=== PATIENT | male | born 1945 | race Caucasian/White ===

== ENCOUNTER 2020-02-22 08:28 | Outpatient (CLI) | payer MEDICARE ==
[~2020-02-22 08:28] MED LIST: LANS30CA37 PO; LISI-222 PO; PRAV10TA38 PO
[2020-02-22 10:09] LABS: BASOPHILS # (AUTO) 0.1 X10'3 (0-0.2); BASOPHILS % (AUTO) 1.3 % (0-1); EOSINOPHILS # (AUTO) 0.5 X10'3 (0-0.9); EOSINOPHILS % (AUTO) 5.9 % (0-6); HEMATOCRIT 42.7 % (42.0-52.0); HEMOGLOBIN 14.2 g/dl (14.0-17.9); LYMPHOCYTES # (AUTO) 1.8 X10'3 (1.1-4.8); LYMPHOCYTES % (AUTO) 22.2 % (21-51); MEAN CORPUSCULAR HEMOGLOBIN 32.2 PG (27.0-31.0); MEAN CORPUSCULAR HGB CONC 33.3 g/dL (33.0-36.5); MEAN CORPUSCULAR VOLUME 96.7 FL (78-98); MEAN PLATELET VOLUME 10.9 FL (7.4-10.4); MONOCYTES % (AUTO) 12.8 % (2-12); NEUTROPHILS # (AUTO) 4.6 X10'3 (1.8-7.7); NEUTROPHILS % (AUTO) 57.8 % (42-75); PLATELET COUNT 170 X10'3 (140-440); RED BLOOD COUNT 4.41 X10'6 (4.70-6.10); RED CELL DISTRIBUTION WIDTH 13.1 % (11.5-14.5); WHITE BLOOD COUNT 7.9 X10'3 (4.5-11.0)
[2020-02-22 10:41] LABS: ALANINE AMINOTRANSFERASE 221 U/L (12-78); ALBUMIN 3.8 G/DL (3.4-5.0); ALKALINE PHOSPHATASE 167 IU/L (46-116); ANION GAP 8 (8-16); ASPARTATE AMINO TRANSFERASE 66 U/L (10-37); BILIRUBIN,TOTAL 0.6 MG/DL (0.1-1.0); BLOOD UREA NITROGEN 26 MG/DL (7-18); BUN/CREATININE RATIO 27.4 (5.4-32.0); CALCIUM 9.2 MG/DL (8.5-10.1); CHLORIDE 105 MMOL/L (99-107); CREATININE 0.95 MG/DL (0.60-1.10); GLUCOSE 100 MG/DL (70-104); POTASSIUM 4.3 MMOL/L (3.5-5.1); SODIUM 142 MMOL/L (135-145); TOTAL CARBON DIOXIDE 28.6 MMOL/L (24-32); TOTAL PROTEIN 7.8 G/DL (6.4-8.2); eGFR 77 ML/MIN
[2020-02-23] MEDS ORDERED: MULT-1141 PO (12:39)
[2020-02-23] MEDS ORDERED: LISI1TAB51 PO (12:39)
[2020-02-23] MEDS ORDERED: ATOR-2 PO (12:39)
[2020-02-23] MEDS ORDERED: ASCO500C17 PO (12:39)
[2020-02-23] MEDS ORDERED: CHOL500050 PO (12:39)
[2020-02-23] MEDS ORDERED: ESOM20CA2 (12:39)
[2020-02-23] MEDS ORDERED: FLO0.4C PO (12:39)
[2020-02-23] MEDS ORDERED: CYAN250010 PO (12:39)
== END 2020-02-22 23:59 | disposition home or self-care (01) ==
LOC: RT 08:28
PROVIDERS: ATTEND Internal Medicine Cardiovascular Disease
DX: M85.88 Other specified disorders of bone density and structure, other site (principal); I35.0 Nonrheumatic aortic (valve) stenosis; R06.02 Shortness of breath; I65.29 Occlusion and stenosis of unspecified carotid artery
CPT/HCPCS: 36415; 71046; 80053; 85025; 93880; 94010; 94727; 94729

== ENCOUNTER 2020-02-23 11:58 | Day surgery (SDC) | payer MEDICARE ==
[2020-02-19 12:45] LABS: BASOPHILS # (AUTO) 0.1 X10'3 (0-0.2); BASOPHILS % (AUTO) 1.5 % (0-1); EOSINOPHILS # (AUTO) 0.4 X10'3 (0-0.9); HEMATOCRIT 41.2 % (42.0-52.0); HEMOGLOBIN 13.7 g/dl (14.0-17.9); LYMPHOCYTES % (AUTO) 29.6 % (21-51); MEAN CORPUSCULAR HEMOGLOBIN 32.1 PG (27.0-31.0); MEAN CORPUSCULAR HGB CONC 33.3 g/dL (33.0-36.5); MEAN CORPUSCULAR VOLUME 96.2 FL (78-98); MEAN PLATELET VOLUME 10.8 FL (7.4-10.4); MONOCYTES # (AUTO) 0.8 X10'3 (0-0.9); MONOCYTES % (AUTO) 12.1 % (2-12); NEUTROPHILS # (AUTO) 3.5 X10'3 (1.8-7.7); NEUTROPHILS % (AUTO) 50.8 % (42-75); PLATELET COUNT 161 X10'3 (140-440); RED BLOOD COUNT 4.28 X10'6 (4.70-6.10); WHITE BLOOD COUNT 6.9 X10'3 (4.5-11.0)
[2020-02-19 13:04] LABS: PARTIAL THROMBOPLASTIN TIME 24 SECONDS (22-32)
[2020-02-19 13:08] LABS: ALBUMIN 3.7 G/DL (3.4-5.0); ANION GAP 8 (8-16); BLOOD UREA NITROGEN 19 MG/DL (7-18); BUN/CREATININE RATIO 21.6 (5.4-32.0); CALCIUM 9.4 MG/DL (8.5-10.1); CHLORIDE 104 MMOL/L (99-107); CREATININE 0.88 MG/DL (0.60-1.10); GLUCOSE 103 MG/DL (70-104); POTASSIUM 4.1 MMOL/L (3.5-5.1); SODIUM 142 MMOL/L (135-145); TOTAL CARBON DIOXIDE 29.6 MMOL/L (24-32); eGFR 84 ML/MIN
[2020-02-19 13:28] LABS: LARGE PLATELETS FEW; PLATELET ESTIMATE NORMAL
[2020-02-23] VITALS (9 sets, daily range): BP systolic 89–133; BP diastolic 47–95
[~2020-02-23] VITALS: Ht 175.3 cm; Wt 106.0 kg
[2020-02-23] MEDS ORDERED: diphenhydrAMINE 25mg capsule PO PRN (12:15)
[2020-02-23] MEDS ORDERED: LORazepam 0.5 MG tablet PO PRN (12:15)
[2020-02-23] MEDS ORDERED: LIDOcaine/PRILOcaine 5gm cream TP ONE (12:15)
[2020-02-23] MEDS ORDERED: normal saline 1,000 ML IV SCH (12:15)
[2020-02-23] MEDS ORDERED: LISI1TAB51 PO (12:39)
[2020-02-23] MEDS ORDERED: ESOM20CA2 (12:39)
[2020-02-23] MEDS ORDERED: CHOL500050 PO (12:39)
[2020-02-23] MEDS ORDERED: MULT-1141 PO (12:39)
[2020-02-23] MEDS ORDERED: ATOR-2 PO (12:39)
[2020-02-23] MEDS ORDERED: CYAN250010 PO (12:39)
[2020-02-23] MEDS ORDERED: FLO0.4C PO (12:39)
[2020-02-23] MEDS ORDERED: ASCO500C17 PO (12:39)
[2020-02-23] MEDS ORDERED: verapamil 2.5 mg/ml inj IV ONE (12:59)
[2020-02-23] MEDS ORDERED: midazolam 2 mg/2 ml injection ONE (12:59)
[2020-02-23] MEDS ORDERED: fentaNYL/PF 50MCG/1 ML 2ML syringe ONE (12:59)
[2020-02-23] MEDS ORDERED: LIDOcaine 1% (10mg/ml)w/preservative injection 20ml MDV ONE (13:00)
[2020-02-23] MEDS ORDERED: heparin 1,000unit/ml 10ml vial 10 ML ONE (13:00)
[2020-02-23] MEDS ORDERED: nitroGLYCERIN-Tridil 50MG/D5W 250 ML IV ONE (13:00)
[2020-02-23] MEDS ORDERED: heparin 1,000 UNITS/NS 500ml 500 ML ONE (13:00)
[2020-02-23] MEDS ORDERED: iohexol 350MG/ML 100ml bottle IV ONE (13:00)
[2020-02-23] MEDS ORDERED: ondansetron/PF 4mg/2ml inj IV PRN (14:15)
[2020-02-23] MEDS ORDERED: HYDROcodone/acetaminophen 10/325mg tab PO PRN (14:15)
[2020-02-23] MEDS ORDERED: proCHLORperazine 10 MG/2 ml inj IV PRN (14:15)
[2020-02-23] MEDS ORDERED: HYDROcodone/acetaminophen 5mg/325mg tablet PO PRN (14:15)
[2020-02-23] MEDS ORDERED: OXAZEpam 15mg capsule PO PRN (14:15)
== END 2020-02-23 16:30 | disposition home or self-care (01) ==
LOC: SSTAY O 11:58
PROVIDERS: ATTEND Internal Medicine Interventional Cardiology
DX: I35.0 Nonrheumatic aortic (valve) stenosis (principal); I25.10 Atherosclerotic heart disease of native coronary artery without angina pectoris; E78.49 Other hyperlipidemia; I10 Essential (primary) hypertension; Z79.899 Other long term (current) drug therapy; Z79.01 Long term (current) use of anticoagulants; Z87.891 Personal history of nicotine dependence; Z88.8 Allergy status to other drugs, medicaments and biological substances
CPT/HCPCS: 36415; 80048; 85025; 85610; 85730; 93005; 93454; 99152; C1769; C1894; J1644; J2001; J2250; J3010; J7030; Q0163; Q9967; 85008; A4620; J3490

== ENCOUNTER 2020-02-26 10:45 | Outpatient (CLI) | payer MEDICARE ==
[~2020-02-26 10:45] MED LIST changes: +ASCO500C17 PO; +ATOR-2 PO; +CHOL500050 PO; +CYAN250010 PO; +ESOM20CA2; +FLO0.4C PO; -LANS30CA37 PO; -LISI-222 PO; +LISI1TAB51 PO; +MULT-1141 PO; -PRAV10TA38 PO
[2020-02-26] MEDS ORDERED: iohexol 350MG/ML 100ml bottle IV ONE ×2 (10:49→10:55)
[2020-02-26] MEDS ORDERED: iohexol 350 MG/ML 50ML vial IV ONE (10:49)
== END 2020-02-26 23:59 | disposition home or self-care (01) ==
LOC: 64 CT 10:45
PROVIDERS: ATTEND Internal Medicine Cardiovascular Disease
DX: K76.0 Fatty (change of) liver, not elsewhere classified (principal); R91.1 Solitary pulmonary nodule; N40.0 Benign prostatic hyperplasia without lower urinary tract symptoms; N32.3 Diverticulum of bladder; I70.0 Atherosclerosis of aorta; I51.7 Cardiomegaly; I35.8 Other nonrheumatic aortic valve disorders; E04.1 Nontoxic single thyroid nodule
CPT/HCPCS: 71275; 74174; Q9967

== ENCOUNTER 2020-03-30 12:46 | Emergency (ER) | payer MEDICARE ==
[~2020-03-30] VITALS: Ht 175.3 cm; Wt 103.0 kg
[~2020-03-30 12:46] MED LIST changes: +ASPI-1265 PO; -ESOM20CA2; +ESOM20CA2 PO; +GLUC100017 PEG; +LISI1TAB29 PO; -LISI1TAB51 PO; +MAGN500C16 PO; +TRIA15OI9 TOP; +VITA1CAP19 PO; +[UNRECOGNIZED DRUG - OTHER] PO
[2020-03-30 12:48] VITALS: BP 143/55
[2020-03-30 13:21] LABS: BASOPHILS # (AUTO) 0.1 X10'3 (0-0.2); EOSINOPHILS # (AUTO) 0.3 X10'3 (0-0.9); EOSINOPHILS % (AUTO) 3.7 % (0-6); HEMATOCRIT 36.4 % (42.0-52.0); HEMOGLOBIN 12.2 g/dl (14.0-17.9); LYMPHOCYTES # (AUTO) 2.2 X10'3 (1.1-4.8); LYMPHOCYTES % (AUTO) 23.4 % (21-51); MEAN CORPUSCULAR HEMOGLOBIN 32.2 PG (27.0-31.0); MEAN CORPUSCULAR HGB CONC 33.6 g/dL (33.0-36.5); MEAN PLATELET VOLUME 11.2 FL (7.4-10.4); MONOCYTES # (AUTO) 1.2 X10'3 (0-0.9); MONOCYTES % (AUTO) 12.5 % (2-12); NEUTROPHILS # (AUTO) 5.6 X10'3 (1.8-7.7); NEUTROPHILS % (AUTO) 59.4 % (42-75); PLATELET COUNT 128 X10'3 (140-440); RED CELL DISTRIBUTION WIDTH 12.9 % (11.5-14.5); WHITE BLOOD COUNT 9.4 X10'3 (4.5-11.0)
[2020-03-30 13:31] LABS: ALANINE AMINOTRANSFERASE 141 U/L (12-78); ALBUMIN 3.3 G/DL (3.4-5.0); ALBUMIN/GLOBULIN RATIO 0.8 (1.1-1.5); ALKALINE PHOSPHATASE 139 IU/L (46-116); ANION GAP 11 (8-16); ASPARTATE AMINO TRANSFERASE 55 U/L (10-37); BILIRUBIN,TOTAL 0.6 MG/DL (0.1-1.0); BLOOD UREA NITROGEN 34 MG/DL (7-18); BUN/CREATININE RATIO 30.1 (5.4-32.0); CALCIUM 9.2 MG/DL (8.5-10.1); CHLORIDE 104 MMOL/L (99-107); CREATININE 1.13 MG/DL (0.60-1.10); GLUCOSE 106 MG/DL (70-104); POTASSIUM 4.1 MMOL/L (3.5-5.1); SODIUM 141 MMOL/L (135-145); TOTAL CARBON DIOXIDE 25.9 MMOL/L (24-32); TOTAL PROTEIN 7.2 G/DL (6.4-8.2); eGFR 63 ML/MIN
[2020-03-30 14:11] LABS: LARGE PLATELETS FEW
[2020-03-30 14:13] LABS: PLATELET ESTIMATE DECREASED
[2020-03-30 15:49] LABS: CLARITY,URINE CLEAR (Clear); COLOR,URINE YELLOW (Yellow); GLUCOSE, URINE NEGATIVE (Neg); KETONES,URINE NEGATIVE (Neg); LEUKOCYTE ESTERASE ,URINE NEGATIVE (Neg); NITRITES, URINE NEGATIVE (Neg); OCCULT BLOOD,URINE MODERATE (Neg); PH,URINE 5.5 (4.8-8.0); PROTEIN,URINE NEGATIVE (Neg); UROBILINOGEN,URINE 0.2 E.U/dL (0.2-1.0)
[2020-03-30 16:00] LABS: UA COLLECTION TYPE FOLEY CATH
[2020-03-30 16:01] LABS: BACTERIA,URINE NONE SEEN /HPF (Neg); SQUAMOUS EPITHELIAL CELL,UR NONE SEEN /LPF (FEW); WBC,URINE NONE SEEN /HPF (0-4)
== END 2020-03-30 17:06 | disposition home or self-care (01) ==
LOC: ER 12:47
DX: R33.9 Retention of urine, unspecified (principal); N13.9 Obstructive and reflux uropathy, unspecified; E78.00 Pure hypercholesterolemia, unspecified; I10 Essential (primary) hypertension; Z95.2 Presence of prosthetic heart valve; Z98.890 Other specified postprocedural states; Z88.8 Allergy status to other drugs, medicaments and biological substances; Z79.82 Long term (current) use of aspirin; Z79.899 Other long term (current) drug therapy
CPT/HCPCS: 36415; 51702; 71045; 80053; 81001; 85008; 85025; 99284

== ENCOUNTER 2020-04-28 14:53 | Outpatient (CLI) | payer MEDICARE ==
[~2020-04-28] VITALS: Ht 175.3 cm; Wt 100.7 kg
--- NOTE | 2020-04-28 17:18 | NUR ---
Patient was seen today for TAVR follow-up with Dr. Gerber and Dr. Charles. [id number] completed. Vital signs measured. Echo and EKG reviewed with patient along with current condition of patients symptoms.
[2020-04-28 17:50] VITALS: BP 136/66
[2020-04-28 17:53] VITALS: BP 107/59
== END 2020-04-28 23:59 | disposition home or self-care (01) ==
LOC: TAVR 14:53
PROVIDERS: ATTEND Internal Medicine Cardiovascular Disease
DX: Z48.812 Encounter for surgical aftercare following surgery on the circulatory system (principal); Z95.5 Presence of coronary angioplasty implant and graft

== ENCOUNTER 2023-12-10 05:44 | Inpatient (IN) | payer MEDICARE ==
[2023-12-03 11:16] LABS: PRE OP PROTIME 10.9 SECONDS (9.0-12.0)
[2023-12-03 11:17] LABS: ALBUMIN 3.6 G/DL (3.4-5.0); ALBUMIN/GLOBULIN RATIO 0.9 (1.1-1.5); ALKALINE PHOSPHATASE 108 IU/L (46-116); BLOOD UREA NITROGEN 19 MG/DL (7-18); BUN/CREATININE RATIO 21.6 (10.0-20.0); CALCIUM 9.4 MG/DL (8.5-10.1); CHLORIDE 103 MMOL/L (99-107); CREATININE 0.88 MG/DL (0.60-1.10); PRE OP ALT 45 U/L (30-65); PRE OP ANION GAP 5 (8-16); PRE OP AST 25 U/L (10-37); PRE OP BILIRUB, TOTAL 0.7 MG/DL (0.0-1.0); PRE OP GLUCOSE 98 MG/DL (70-104); PRE OP POTASSIUM 4.2 MMOL/L (3.4-5.1); PRE OP SODIUM 138 MMOL/L (135-145); TOTAL CARBON DIOXIDE 30.1 MMOL/L (24-32); TOTAL PROTEIN 7.6 G/DL (6.4-8.2); eGFR 84 ML/MIN
[2023-12-03 11:25] LABS: BILIRUBIN,URINE NEGATIVE (Neg); CLARITY,URINE CLEAR (Clear); COLOR,URINE YELLOW (Yellow); GLUCOSE, URINE NEGATIVE (Neg); KETONES,URINE NEGATIVE (Neg); LEUKOCYTE ESTERASE ,URINE NEGATIVE (Neg); NITRITES, URINE NEGATIVE (Neg); OCCULT BLOOD,URINE NEGATIVE (Neg); PH,URINE 5.5 (4.8-8.0); PROTEIN,URINE NEGATIVE (Neg); UROBILINOGEN,URINE 0.2 E.U/dL (0.2-1.0)
[2023-12-03 11:30] LABS: UA COLLECTION TYPE CLN CATCH MIDSTREAM
[2023-12-03 12:00] LABS: BASOPHILS # (AUTO) 0.1 X10'3 (0-0.2); BASOPHILS % (AUTO) 1.3 % (0-1); EOSINOPHILS # (AUTO) 0.4 X10'3 (0-0.9); EOSINOPHILS % (AUTO) 5.7 % (0-6); LYMPHOCYTES # (AUTO) 1.7 X10'3 (1.1-4.8); LYMPHOCYTES % (AUTO) 25.9 % (21-51); MEAN CORPUSCULAR HEMOGLOBIN 32.5 PG (27.0-31.0); MEAN CORPUSCULAR HGB CONC 33.7 g/dL (33.0-36.5); MEAN CORPUSCULAR VOLUME 96.3 FL (78-98); MEAN PLATELET VOLUME 10.1 FL (7.4-10.4); MONOCYTES # (AUTO) 0.8 X10'3 (0-0.9); MONOCYTES % (AUTO) 12.4 % (2-12); NEUTROPHILS # (AUTO) 3.5 X10'3 (1.8-7.7); NEUTROPHILS % (AUTO) 54.7 % (42-75); PRE OP HEMATOCRIT 40.2 % (42.0-52.0); PRE OP HEMOGLOBIN 13.6 g/dL (14.0-17.9); PRE OP PLATELET COUNT 129 X10'3 (140-440); PRE OP WHITE BLOOD COUNT 6.4 10'3 (4.8-10.8); RED BLOOD COUNT 4.18 X10'6 (4.70-6.10); RED CELL DISTRIBUTION WIDTH 13.2 % (11.5-14.5)
[2023-12-10] VITALS (31 sets, daily range): BP systolic 112–178; BP diastolic 64–96; PULSE 55–70; RESP 14–26; TEMP 97.5–98.1; O2SAT 94–98
[~2023-12-10] VITALS: Ht 170.2 cm; Wt 98.8 kg
[2023-12-10] MEDS: DOCUMENT DATE & TIME OF BETA-BLOCKER PO ONE (05:30)
[2023-12-10] MEDS: ringers solution, lacted 1,000 ML IV SCH ×2 (05:30→06:45)
[2023-12-10] MEDS: ceFAZolin 2gm in dextrose, iso 50 ML IV ONE (05:30)
[~2023-12-10 05:44] MED LIST changes: +APIX5TAB3 PO; +ASCO100T10 PO; -ASCO500C17 PO; -ASPI-1265 PO; -ESOM20CA2 PO; +EZET10TA6 PO; -GLUC100017 PEG; +GLUC500T12 PO; -LISI1TAB29 PO; +LISI1TAB51 PO; -MAGN500C16 PO; +MULT-1085 PO; -MULT-1141 PO; +OMEP20CA16 PO; +SOTA80TA PO; -TRIA15OI9 TOP; +TUMERIC PO; +UBID100C16 PO; +VITA-288 PO; -VITA1CAP19 PO; -[UNRECOGNIZED DRUG - OTHER] PO; +ondansetron/PF 4mg/2ml inj IV PRN
[2023-12-10] MEDS ORDERED: iohexol 350MG/ML 100ml bottle IV ONE (06:22)
[2023-12-10] MEDS ORDERED: midazolam 1 mg/ML 2ml injection ONE (06:41)
[2023-12-10] MEDS ORDERED: fentaNYL/PF 50MCG/1 ML 2ML syringe ONE (06:41)
[2023-12-10] MEDS ORDERED: labetalol 20mg/4ml (5mg/ml) syringe IV PRN ×2 (06:45→07:55)
[2023-12-10] MEDS ORDERED: morphine 2 MG/ML inj. syringe IV PRN (06:45)
[2023-12-10] MEDS ORDERED: hydrALAZINE 20mg/ml inj. IV PRN ×2 (06:45→07:55)
[2023-12-10] MEDS ORDERED: meperidine/PF 25mg/ml syringe IV PRN ×3 (06:45)
[2023-12-10] MEDS ORDERED: ondansetron/PF 4mg/2ml inj IV PRN ×2 (06:45→07:55)
[2023-12-10] MEDS ORDERED: morphine 4 MG/ML inj SYRINge IV PRN (06:45)
[2023-12-10] MEDS ORDERED: proCHLORperazine 10 MG/2 ml inj IV PRN ×2 (06:45→07:55)
[2023-12-10] MEDS: acetaminophen 1,000mg/100ml IV 100 ML IV ONE (06:45)
[2023-12-10] MEDS ORDERED: LIDOcaine 1% (10mg/ml) 2ml vial ONE ×2 (06:48→07:06)
[2023-12-10] MEDS: famotidine 20mg tablet PO ONE (06:51)
[2023-12-10] MEDS ORDERED: protamine sulfate 10mg/ml inj. ONE (06:52)
[2023-12-10] MEDS: vancomycin 1,500 MG in NS 300ml IV soln IV ONE (06:53)
[2023-12-10] MEDS ORDERED: sevoflurane 250ml liquid IH ONE (07:05)
[2023-12-10] MEDS ORDERED: LIDOcaine 2% (20mg/ml) 5ml vial ONE (07:06)
[2023-12-10] MEDS ORDERED: propofol inj 20 ML IV ONE (07:06)
[2023-12-10] MEDS ORDERED: heparin 1,000unit/ml 10ml vial 10 ML ONE ×2 (07:19→07:40)
[2023-12-10] MEDS ORDERED: dexamethasone sod phosphate 4mg/ml inj. ONE (07:19)
[2023-12-10] MEDS ORDERED: ondansetron/PF 4mg/2ml inj ONE (07:19)
[2023-12-10] MEDS ORDERED: ePHEDrine 50MG/ML INJ. ONE (07:22)
[2023-12-10] MEDS ORDERED: 0.9 % SODIUM CHLORIDE 10 ML VIAL ONE (07:22)
[2023-12-10] MEDS ORDERED: potassium CL 10mEq/100ml bag 100 ML IV PRN (07:55)
[2023-12-10] MEDS ORDERED: magnesium sulf-water 4G/100mL 100 ML IV PRN (07:55)
[2023-12-10] MEDS ORDERED: magnesium sulf-water 2g/50mL 50 ML IV PRN (07:55)
[2023-12-10] MEDS ORDERED: diphenhydrAMINE 25mg capsule PO PRN (07:55)
[2023-12-10] MEDS: normal saline 1000ml 1,000 ML IV SCH (07:55)
[2023-12-10] MEDS ORDERED: potassium Cl 40MEQ/270ML bag 250 ML IV PRN (07:55)
[2023-12-10] MEDS ORDERED: ALPRAZolam 0.25mg tablet PO PRN (07:55)
[2023-12-10] MEDS ORDERED: HYDROcodone/acetaminophen 5mg/325mg tablet PO PRN (07:55)
[2023-12-10] MEDS ORDERED: pantoprazole 40mg Tablet.DR PO PRN (07:55)
[2023-12-10] MEDS ORDERED: potassium Cl 20 mEq SR tablet PO PRN (07:55)
[2023-12-10] MEDS ORDERED: acetaminophen 325mg tablet PO PRN (07:55)
[2023-12-10] MEDS ORDERED: potassium Cl 40MEQ/1/2NS 520ml 520 ML IV PRN (07:55)
[2023-12-10] MEDS ORDERED: potassium Cl 20mEq/100mL bag 100 ML IV PRN (07:55)
[2023-12-10] MEDS ORDERED: docusate sod 100mg capsule PO PRN (07:55)
[2023-12-10] MEDS: ceFAZolin 1GM/D5W- ADD-VANTAGE 50 ML IV SCH (08:00)
[2023-12-10] MEDS ORDERED: vancomycin/NS 1 GM ADD-VANTAGE 250 ML IV SCH (08:00)
[2023-12-10] MEDS ORDERED: sod chloride 0.9% 10ml flush syringe IV SCH (08:00)
[2023-12-10] MEDS: sotalol HCl 40mg (1/2 tablet) PO SCH (20:25)
[2023-12-10] MEDS: VANCOMYCIN 1GM 200ML H20 (PEG) 200 ML IV SCH (20:26)
[2023-12-10] MEDS: apixaban 5mg tablet PO SCH (20:26)
[2023-12-11 02:00] VITALS: BP 108/67; PULSE 60; RESP 19; TEMP 98.8; O2SAT 93
[2023-12-11 06:00] VITALS: BP 144/81; PULSE 61; RESP 17; TEMP 98; O2SAT 95
[2023-12-11 07:32] LABS: INR 1.1 INR; PROTHROMBIN TIME 11.1 SECONDS (9.0-12.0)
[2023-12-11 08:00] VITALS: RESP 17; O2SAT 95
[2023-12-11] MEDS ORDERED: VITAMIN E MIXED 400 UNIT PO SCH (08:00)
[2023-12-11] MEDS: multivitamins, therapeutics tablet PO SCH (08:00)
[2023-12-11] MEDS: cholecalciferol (vitamin D3) 1,000 unit (25mcg) tablet PO SCH (08:00)
[2023-12-11] MEDS: cyanocobalamin 500mcg tablet PO SCH (08:00)
[2023-12-11] MEDS ORDERED: GLUCOSAMINE HCL 1000 MG PO SCH (08:00)
[2023-12-11] MEDS: ezetimibe 10mg tablet PO SCH (08:00)
[2023-12-11] MEDS ORDERED: non-formulary drug (Ubidecarenone (Coq-10) 100 MG) PO SCH (08:00)
[2023-12-11 08:18] LABS: ALANINE AMINOTRANSFERASE 25 U/L (12-78); ALBUMIN 3.1 G/DL (3.4-5.0); ALBUMIN/GLOBULIN RATIO 0.9 (1.1-1.5); ALKALINE PHOSPHATASE 87 IU/L (46-116); ANION GAP 8 (8-16); ASPARTATE AMINO TRANSFERASE 23 U/L (10-37); BILIRUBIN,TOTAL 0.7 MG/DL (0.1-1.0); BLOOD UREA NITROGEN 16 MG/DL (7-18); BUN/CREATININE RATIO 20.3 (10.0-20.0); CHLORIDE 104 MMOL/L (99-107); CREATININE 0.79 MG/DL (0.60-1.10); GLUCOSE 98 MG/DL (70-104); MAGNESIUM 1.6 MG/DL (1.5-2.4); POTASSIUM 3.5 MMOL/L (3.5-5.1); PRO BRAIN NATRIURETIC PEPTIDE 1079 PG/ML (0-450); SODIUM 138 MMOL/L (135-145); TOTAL CARBON DIOXIDE 25.7 MMOL/L (24-32); TOTAL PROTEIN 6.6 G/DL (6.4-8.2); eCRCL 71 ML/MIN; eGFR > 90 ML/MIN
[2023-12-11 08:34] LABS: BASOPHILS % (AUTO) 0.2 % (0-1); EOSINOPHILS % (AUTO) 0.2 % (0-6); HEMATOCRIT 36.8 % (42.0-52.0); HEMOGLOBIN 12.4 g/dl (14.0-17.9); LYMPHOCYTES # (AUTO) 1.7 X10'3 (1.1-4.8); LYMPHOCYTES % (AUTO) 14.9 % (21-51); MEAN CORPUSCULAR HEMOGLOBIN 32.7 PG (27.0-31.0); MEAN CORPUSCULAR HGB CONC 33.8 g/dL (33.0-36.5); MEAN CORPUSCULAR VOLUME 96.6 FL (78-98); MEAN PLATELET VOLUME 10.3 FL (7.4-10.4); MONOCYTES # (AUTO) 1.5 X10'3 (0-0.9); MONOCYTES % (AUTO) 12.8 % (2-12); NEUTROPHILS # (AUTO) 8.4 X10'3 (1.8-7.7); NEUTROPHILS % (AUTO) 71.9 % (42-75); PLATELET COUNT 121 X10'3 (140-440); RED BLOOD COUNT 3.81 X10'6 (4.70-6.10); RED CELL DISTRIBUTION WIDTH 13.3 % (11.5-14.5); WHITE BLOOD COUNT 11.7 X10'3 (4.5-11.0)
[2023-12-11] MEDS: HYDROchlorothiazide 12.5mg capsule PO SCH (09:16)
[2023-12-11 09:17] VITALS: BP_SYST 144; PULSE 61
[2023-12-11] MEDS: pantoprazole 40mg Tablet.DR PO SCH (09:17)
[2023-12-11] MEDS: lisinopril 20mg tablet PO SCH (09:17)
[2023-12-11] MEDS: tamsulosin 0.4mg capsule PO SCH (09:19)
[2023-12-11] MEDS: atorvastatin 20mg tablet PO SCH (09:20)
== END 2023-12-11 13:12 | disposition home or self-care (01) | DRG 274 ==
LOC: PAS IN 05:44 → EDSTATUS 07:00 → PCU 3S 13:00
PROVIDERS: ADMIT Student in an Organized Health Care Education/Training Program; ATTEND Student in an Organized Health Care Education/Training Program
PROC: 03HY32Z Insertion of Monitoring Device into Upper Artery, Percutaneous Approach (ICD-10-PCS; 2023-12-10)
PROC: B24BZZ4 Ultrasonography of Heart with Aorta, Transesophageal (ICD-10-PCS; 2023-12-10)
PROC: 02L73DK Occlusion of Left Atrial Appendage with Intraluminal Device, Percutaneous Approach (ICD-10-PCS; principal; 2023-12-10 07:05)
DX: I48.91 Unspecified atrial fibrillation (principal); Z00.6 Encounter for examination for normal comparison and control in clinical research program; I10 Essential (primary) hypertension; E78.5 Hyperlipidemia, unspecified; Z95.2 Presence of prosthetic heart valve; Z88.8 Allergy status to other drugs, medicaments and biological substances
CPT/HCPCS: 33340; 36415; 71045; 71046; 76937; 80053; 81003; 82948; 83735; 83880; 85025; 85347; 85610; 85730; 86885; 86900; 86901; 86920; 87081; 93005; 93308; 93312; 93325; A4615; A4618; A6258; A6449; C1760; C1889; C1893; C1894; G0378; J0690; J1100; J1644; J2003; J2250; J2405; J2704; J2720; J3010; J3370; J3490; J7030; J7040; J7120; Q9967

== ENCOUNTER 2024-01-21 10:44 | Day surgery (SDC) | payer MEDICARE ==
[~2024-01-21] VITALS: Ht 170.2 cm; Wt 99.9 kg
[2024-01-21] VITALS (11 sets, daily range): BP systolic 108–173; BP diastolic 64–98; PULSE 57–75; RESP 10–24; TEMP 97.7; O2SAT 94–99
[~2024-01-21 10:44] MED LIST changes: -ondansetron/PF 4mg/2ml inj IV PRN
[2024-01-21 11:49] LABS: BASOPHILS # (AUTO) 0.1 X10'3 (0-0.2); BASOPHILS % (AUTO) 1.1 % (0-1); EOSINOPHILS # (AUTO) 0.3 X10'3 (0-0.9); EOSINOPHILS % (AUTO) 3.7 % (0-6); HEMATOCRIT 40.1 % (42.0-52.0); HEMOGLOBIN 13.5 g/dl (14.0-17.9); LYMPHOCYTES # (AUTO) 1.9 X10'3 (1.1-4.8); LYMPHOCYTES % (AUTO) 25.2 % (21-51); MEAN CORPUSCULAR HEMOGLOBIN 32.8 PG (27.0-31.0); MEAN CORPUSCULAR HGB CONC 33.7 g/dL (33.0-36.5); MEAN CORPUSCULAR VOLUME 97.3 FL (78-98); MEAN PLATELET VOLUME 9.3 FL (7.4-10.4); MONOCYTES # (AUTO) 0.9 X10'3 (0-0.9); MONOCYTES % (AUTO) 12.2 % (2-12); NEUTROPHILS # (AUTO) 4.3 X10'3 (1.8-7.7); NEUTROPHILS % (AUTO) 57.8 % (42-75); PLATELET COUNT 140 X10'3 (140-440); RED BLOOD COUNT 4.12 X10'6 (4.70-6.10); RED CELL DISTRIBUTION WIDTH 13.5 % (11.5-14.5); WHITE BLOOD COUNT 7.4 X10'3 (4.5-11.0)
[2024-01-21 11:56] LABS: ALBUMIN 3.7 G/DL (3.4-5.0); ANION GAP 9 (8-16); BLOOD UREA NITROGEN 27 MG/DL (7-18); BUN/CREATININE RATIO 34.2 (10.0-20.0); CALCIUM 9.3 MG/DL (8.5-10.1); CHLORIDE 106 MMOL/L (99-107); CREATININE 0.79 MG/DL (0.60-1.10); GLUCOSE 104 MG/DL (70-104); POTASSIUM 4.2 MMOL/L (3.5-5.1); SODIUM 140 MMOL/L (135-145); TOTAL CARBON DIOXIDE 24.9 MMOL/L (24-32); eCRCL 71 ML/MIN; eGFR > 90 ML/MIN
[2024-01-21] MEDS: fentaNYL/PF 50MCG/1 ML 2ML syringe IV ONE (13:18)
[2024-01-21] MEDS: MIDAZolam 1mg/ml 10ml vial IV ONE (13:19)
[2024-01-21 13:31] LABS: APTT 28 SECONDS (22-32); INR 1.1 INR; PROTHROMBIN TIME 11.4 SECONDS (9.0-12.0)
[2024-01-21] MEDS ORDERED: CLOP-32 PO (13:38)
[2024-01-21] MEDS ORDERED: ASPI-1397 PO (13:38)
== END 2024-01-21 14:15 | disposition home or self-care (01) ==
LOC: SSTAY O 10:44
PROVIDERS: ATTEND Student in an Organized Health Care Education/Training Program
DX: I48.91 Unspecified atrial fibrillation (principal); I25.10 Atherosclerotic heart disease of native coronary artery without angina pectoris; Z98.890 Other specified postprocedural states
CPT/HCPCS: 36415; 80048; 85025; 85610; 85730; 93312; 93325; 94760; J2250; J3010; J7030

== ENCOUNTER 2024-09-06 16:44 | Emergency (ER) | payer MEDICARE ==
[~2024-09-06] VITALS: Ht 175.3 cm; Wt 100.8 kg
[~2024-09-06 16:44] MED LIST changes: +ASPI-1397 PO; +CLOP-32 PO; -FLO0.4C PO; +TAMS-55 PO
--- NOTE | 2024-09-06 17:21 | Physician Documentation ---
History of Present Illness ~ Chief Complaint: Urinary Retention Stated Complaint: "I THINK I HAVE A PROSTATE PROBLEMS" Time Seen by MD: 17:12 HPI This 78-year-old male presents to the emergency department reporting that he is having difficulty fully emptying his bladder. He reports that he was able to urinate 2 hours ago, but that it was only a very small amount. He denies chills or fever, nausea or vomiting, constipation, shortness of breath or chest pain. Medication Reconciliation Allergies: Coded Allergies: cortisone (Unverified Allergy, Unknown, 09/06/24) Scheduled Apixaban (Eliquis), 5 MG PO BID, (Reported) Ascorbic Acid (Vitamin C), 100 MG PO DAILY, (Reported) Aspirin (Aspirin EC), 1 TAB PO DAILY Atorvastatin Calcium (Atorvastatin Calcium), 80 MG PO DAILY, (Reported) Cholecalciferol (Vitamin D3) (Vitamin D3), 125 MCG PO DAILY, (Reported) Clopidogrel Bisulfate (Plavix), 1 TAB PO DAILY Cyanocobalamin (Vitamin B-12) (Vitamin B12), 5,000 MCG PO DAILY, (Reported) Ezetimibe (Zetia), 10 MG PO DAILY, (Reported) Glucosamine HCl (Glucosamine HCl), 1,000 MG PO DAILY, (Reported) Lisinopril/Hydrochlorothiazide (Lisinopril-Hctz 20-12.5 mg Tab), 1 TAB PO DAILY, (Reported) Multivitamin (Multi Vitamin Daily), 1 TAB PO DAILY, (Reported) Omeprazole (Omeprazole), 20 MG PO DAILY, (Reported) Sotalol Hcl (Sotalol), 40 MG PO BID, (Reported) Tamsulosin Hcl* (Flomax*), 0.4 MG PO DAILY, (Reported) Ubidecarenone (Coq-10), 100 MG PO DAILY, (Reported) Vitamin E Mixed (Vitamin E), 400 UNITS PO DAILY, (Reported) [Tumeric], 1,000 MG PO DAILY, (Reported) Past Medical History Past Medical History: High Cholesterol, Hypertension, Valve Insuffciency Past Surgical History: heart valve surgery Lives In: Home Occupation: retired Review of Systems ROS As stated above in the HPI, otherwise all systems are reviewed and negative. Physical Exam Vital Signs: Temperature: 98.8, Source: Temporal, Heart Rate: 84, Respiratory Rate: 18, BP: 164/90, Pulse Oximetry: 95, Weight: 100.750 Oxygen Flow Rate: 0 Physical Exam General: Alert, no apparent distress. Neck: Full range of motion. Respiratory: Lungs clear, no respiratory distress. Chest: No accessory muscle use. Cardiovascular: Regular rate and rhythm, no murmurs. TTP over bladder. Extremities: Normal range of motion, no deformity. Neurologic: Oriented x4. Psychiatric: Normal mood and affect. Skin: Normal color, warm and dry. 2+ edema BLE. Progress Progress Note 1745: RN reports bladder scan showed just over 600 ml. Clements catheter was placed at that time. Results/Orders Results/Orders Orders - TERRENCE DRUMMOND [employer] Bladder Scan (09/06/24 ) * Miscellaneous Nursing Orders (09/06/24 17:15) * (A) Clements- Protocol * Q12H@07,19 (09/06/24 17:30) Vital Signs 09/06/24 09/06/24 09/06/24 16:47 17:17 17:48 Temp 98.8 98.8 Pulse 84 78 Resp 18 16 14 B/P (MAP) 164/90 148/80 (102) Pulse Ox 95 94 O2 Flow Rate 0 0 Laboratory Tests Test 09/06/24 17:14 09/06/24 17:39 White Blood Count 12.2 H Red Blood Count 4.24 L Hemoglobin 13.4 L Hematocrit 39.8 L Mean Corpuscular Volume 93.9 Mean Corpuscular Hemoglobin 31.6 H Mean Corpuscular Hemoglobin Concent 33.6 Red Cell Distribution Width 13.7 Platelet Count 132 L Mean Platelet Volume 11.3 H Neutrophils (%) (Auto) 74.3 Lymphocytes (%) (Auto) 13.3 L Monocytes (%) (Auto) 9.8 Eosinophils (%) (Auto) 2.0 Basophils (%) (Auto) 0.6 Neutrophils # (Auto) 9.0 H Lymphocytes # (Auto) 1.6 Monocytes # (Auto) 1.2 H Eosinophils # (Auto) 0.2 Basophils # (Auto) 0.1 CBC Comment Sodium Level 142 Potassium Level 3.9 Chloride Level 104 Carbon Dioxide Level 26.2 Anion Gap 12 Blood Urea Nitrogen 25 H Creatinine 0.90 Estimated GFR/1.73 m2 81 BUN/Creatinine Ratio 27.8 H Glucose Level 127 H Calcium Level 9.3 Total Bilirubin 1.2 H Aspartate Amino Transf (AST/SGOT) 99 H Alanine Aminotransferase (ALT/SGPT) 89 H Alkaline Phosphatase 143 H Total Protein 7.7 Albumin 3.7 Globulin 4.0 Albumin/Globulin Ratio 0.9 L Chemistry Comments Urine Specimen Description Clements cath Urine Color Yellow Urine Clarity Clear Urine pH 6.0 Urine Specific [place] 1.020 Urine Protein Negative Urine Glucose (UA) Negative Urine Ketones Negative Urine Occult Blood Negative Urine Nitrite Negative Urine Bilirubin Negative Urine Urobilinogen 0.2 Urine Leukocyte Esterase Negative Urine Culture Indicated Not ind Volume Urine Centrifuged 10 ml Urine Comment Medical Decision Making Additional Comment This is a 78-year-old male who has a history of BPH and is already on Flomax. He does note a history of urinary retention several years ago, for which he had to have a Clements catheter. He has not experienced any recent chills or fever, nausea or vomiting, constipation, chest pain or shortness of breath. He does have some peripheral edema in his legs, notes that this is chronic. His only concern today is inability to completely empty the bladder. He was found to have just over 600 mL on bladder scan, Clements catheter was placed. He was advised that it would be best for him to go home with a Clements catheter and follow up with his primary care provider within a week. The patient declined, and the Clements catheter was removed. He should return to the ER if he is unable to void for 8 hours. Departure Time of Disposition: 17:59 Disposition: 01 HOME / SELF CARE / HOMELESS Impression: Primary Impression: Acute urinary retention Discharge Instructions: Acute Urinary Retention, Male Additional Instructions: Please see your primary care within a week. This request a referral to Urology. Return to the ER if unable to urinate after 8 hrs or if needing to return sooner due to concerns for inability to fully empty the bladder. Referrals: NO PRIMARY CARE PROVIDER (PCP) Education Educated: Patient Educated regarding: diagnosis, treatment, prognosis, need for follow up Signature Scribe Signature: x Attestation: The note accurately reflects work and decisions made by me.Terrence Rahman NP 09/06/24 17:46 TERRENCE DRUMMOND NP Sep 06, 2024 17:20
[2024-09-06 17:37] LABS: MEAN PLATELET VOLUME 11.3 FL (7.4-10.4); RED CELL DISTRIBUTION WIDTH 13.7 % (11.5-14.5)
[2024-09-06 17:54] LABS: TOTAL CARBON DIOXIDE 26.2 MMOL/L (24-32)
[2024-09-06 17:55] LABS: CREATININE 0.90 MG/DL (0.60-1.10); eCRCL 67 ML/MIN; eGFR 81 ML/MIN
[2024-09-06 17:55] LABS: LEUKOCYTE ESTERASE ,URINE NEGATIVE (Neg); NITRITES, URINE NEGATIVE (Neg); OCCULT BLOOD,URINE NEGATIVE (Neg); UA COLLECTION TYPE FOLEY CATH
[2024-09-06 18:19] VITALS: BP 116/63; PULSE 79; RESP 14; TEMP 98.8; O2SAT 94
== END 2024-09-06 18:25 | disposition home or self-care (01) ==
LOC: ER 16:45
DX: R33.9 Retention of urine, unspecified (principal); I10 Essential (primary) hypertension; E78.00 Pure hypercholesterolemia, unspecified; Z88.8 Allergy status to other drugs, medicaments and biological substances; Z79.899 Other long term (current) drug therapy; Z79.82 Long term (current) use of aspirin
CPT/HCPCS: 51702; 51798; 80053; 81003; 85025; 99284; A4314

== ENCOUNTER 2024-11-21 21:43 | Emergency (ER) | payer MEDICARE ==
[~2024-11-21] VITALS: Ht 175.3 cm; Wt 100.9 kg
[~2024-11-21 21:43] MED LIST changes: -APIX5TAB3 PO; +ASCO-134 PO; -ASCO100T10 PO; -ASPI-1397 PO; +ASPI-529 PO; -CLOP-32 PO; +CYAN100019 PO; -CYAN250010 PO
[2024-11-21 21:45] VITALS: BP 194/100; PULSE 77; O2SAT 100
[2024-11-21 23:57] VITALS: RESP 16
--- NOTE | 2024-11-22 00:05 | Physician Documentation ---
History of Present Illness ~ Chief Complaint: Urinary Retention Stated Complaint: UNABLE TO URINATE Time Seen by MD: 23:59 Primary Medical Doctor: Destiny BRAVO Mode of Arrival: POV HPI This is an 79-year-old male status post for stage resection, had removed his Clements yesterday, and has been experiencing acute urinary retention since then. Reports suprapubic pain. The particular palliating or aggravating factors. Denies any fever or chills, denies flank pain. Medication Reconciliation Allergies: Coded Allergies: No Known Drug Allergies (Verified Allergy, Unknown, 11/18/24) Scheduled Ascorbic Acid (Ascorbic Acid), 1,000 MG PO DAILY, (Reported) Aspirin (Baby Aspirin), 1 TAB PO HS, (Reported) Atorvastatin Calcium (Atorvastatin Calcium), 80 MG PO HS, (Reported) Cholecalciferol (Vitamin D3) (Vitamin D3), 125 MCG PO DAILY, (Reported) Cyanocobalamin (Vitamin B-12) (Vitamin B-12), 1 TAB PO DAILY, (Reported) Ezetimibe (Zetia), 10 MG PO DAILY, (Reported) Glucosamine HCl (Glucosamine HCl), 1,000 MG PO DAILY, (Reported) Lisinopril/Hydrochlorothiazide (Lisinopril-Hctz 20-12.5 mg Tab), 1 TAB PO HS, (Reported) Multivitamin (Multi Vitamin Daily), 1 TAB PO DAILY, (Reported) Omeprazole (Omeprazole), 40 MG PO BKF, (Reported) Sotalol Hcl (Sotalol), 40 MG PO BID, (Reported) Tamsulosin Hcl* (Flomax*), 0.4 MG PO HS, (Reported) Ubidecarenone (Coq-10), 100 MG PO DAILY, (Reported) Vitamin E Mixed (Vitamin E), 400 UNITS PO DAILY, (Reported) [Tumeric], 1,000 MG PO DAILY, (Reported) Discontinued Medications Apixaban (Eliquis), 5 MG PO BID, (Reported) Discontinued Reason: Other Ascorbic Acid (Vitamin C), 100 MG PO DAILY, (Reported) Discontinued Reason: Prescription changed Aspirin (Aspirin EC), 1 TAB PO DAILY Discontinued Reason: Other Clopidogrel Bisulfate (Plavix), 1 TAB PO DAILY Discontinued Reason: Other Cyanocobalamin (Vitamin B-12) (Vitamin B12), 5,000 MCG PO DAILY, (Reported) Discontinued Reason: Prescription changed Past Medical History Past Medical History: High Cholesterol, Hypertension, Valve Insuffciency Past Surgical History: heart valve surgery Lives In: Home Occupation: retired Review of Systems ROS 10 point review of systems was performed and unless noted above in HPI is negative for acute process/complaint. Physical Exam Vital Signs: Temperature: 98.4, Source: Oral, Heart Rate: 77, Respiratory Rate: 16, BP: 194/100, Pulse Oximetry: 100, Weight: 100.910 Physical Exam Physical examination: GENERAL: Awake, alert, oriented, GCS 15, no apparent distress, non-toxic appearing, answers questions, follows commands appropriately. HEENT: Atraumatic, normocephalic, pupils equal, extraocular muscles intact Active gross movements, sclerae anicteric, mucus membranes moist, no stridor. NECK: Midline, no JVD CARDIOVASCULAR: Good skin perfusion without evidence of pallor, mottling. PULMONARY: Nonlabored, symmetric chest rise, no audible wheezing, no accessory muscle use, no respiratory distress, speaking in full sentences. GASTROINTESTINAL: Not distended. NEUROLOGIC: Lucid with normal mental status. Normal facial symmetry. Moves all extremities symmetrically and with purpose. No truncal ataxia. Speech is flui d without evidence of dysarthria or aphasia, no focal deficits appreciated. EXTREMITIES: Acute deformities Skin: warm, dry PSYCHIATRIC: Normal affect, normal insight, normal concentration. Focused exam: [] Progress Results/Orders Results/Orders Orders - ANNA BELLO DO * Bladder Scan / Post Residual (11/21/24 23:48) Vital Signs 11/21/24 11/21/24 21:45 23:57 Temp 98.4 Pulse 77 Resp 18 16 B/P (MAP) 194/100 Pulse Ox 100 Medical Decision Making Findings Facility Status: ED Holds, [facility] process The plan was discussed with the patient, who demonstrates clear understanding of the plan and is in agreement with the plan unless otherwise noted in the chart. All questions have been answered, all concerns were addressed unless otherwise documented. I was available throughout their ED stay for frequent reassessment and questions. Differential Diagnoses (considered and possible or likely): [Acute urinary retention, less likely UTI or kidney injury] ??Differential Diagnoses (considered and unlikely, not requiring evaluation currently): [No evidence of trauma] MDM Data Please see HPI for the following: Independent Historians and external Records Review. Historian: [Patient] Independent Historians: ?[Record review] Medication Management: [Reviewed medication list] Social History and determinants: [Reviewed] Please see the body of the note for the following: Any independent interpretations of ECG, imaging studies. All vitals signs/haemodynamics, ordered tests were independently reviewed and in terpreted by myself. Nursing triage complaint and vitals reviewed, additional nursing notes were reviewed as available and I agree unless otherwise noted or documented in contradiction in the chart Vital Signs: Independently reviewed Labs: Independently interpreted Imaging: Independently interpreted Old Medical Records: Independently reviewed, see HPI for relevant summary and information Pulse Oximetry: [97%] interpreted as [normal on room air] by me Additionally notably showing: [Hemodynamically stable] Tests considered but not ordered include: [UA and CMP has been considerably the patient declines] Social Determinants of Health Impact: Patient was evaluated in [facility] [place] to healthcare due to below par ratio of patient to medical providers. [] Comorbid Conditions Impacting Present Evaluation and Care/Treatment: [Recent surgery] Management Discussions with other Healthcare Providers: [None] Treatment and Disposition Medication Management (Given or considered): [Clements catheter was offered, the patient declines]. See EMR for details Consideration for Hospitalization/Escalation/Deescalation of Care: Admission for observation has been considered, [however the patient is able to tolerate p.o., their symptoms are controlled, they are able to rely on oral medications, and their chief complaint/diagnosis can be managed on outpatient basis.] ?ED Course:?[I do believe the patient needs the Clements back, he does not want it, he has self catheterization kits at home. He would prefer to do that and follow-up with his urologist.] ?Shared decision making:?[Patient is hemodynamically stable for discharge home with follow with their primary care provider. [ ] Specific and cautious return precautions provided and discussed with full understanding. Any incidental findings were also discussed and follow up recommendations given. [] All questions answered. Patient/family were able to verbalize back return precautions. Patient/family agree to plan. Copies of imaging and laboratory studies were provided.] Code status:?FULL Please see the full Electronic Medical Record for full details of nursing documentation, medications list, other records of complete past medical history and conditions, vital signs, laboratory studies, and any radiologic study interpretations by radiologists. Portions of this note were completed using [employer] dictation software and as a result there may exist minor errors in spelling. I have reviewed elements of past family and social history and agree as included in note. Departure Disposition: HOME / SELF CARE / HOMELESS Impression: Primary Impression: Acute urinary retention Condition: Improved Discharge Instructions: Acute Urinary Retention, Male Additional Instructions: Please follow-up with your urologist as soon as possible Referrals: NO PRIMARY CARE PROVIDER (PCP) Education Educated: Patient Educated regarding: diagnosis, treatment, prognosis, need for follow up Signature Scribe Signature: No scribe Attestation: Date: Nov 22, 2024 Time: 00:05 This note accurately reflects clinical decisions, work performed by myself, DO ACE Johnson NICHOLAS M DO Nov 22, 2024 00:05
[2024-11-22 00:10] VITALS: TEMP 98.4
== END 2024-11-22 00:17 | disposition home or self-care (01) ==
LOC: ER 21:43
DX: R33.9 Retention of urine, unspecified (principal); I10 Essential (primary) hypertension; E78.00 Pure hypercholesterolemia, unspecified; Z79.899 Other long term (current) drug therapy; Z79.82 Long term (current) use of aspirin
CPT/HCPCS: 51701; 51798; 99284; C1758